=== PATIENT | male | born 1990 | race Caucasian/White ===

== ENCOUNTER 2017-10-01 17:31 | Emergency (ER) | payer MEDICAID ==
[~2017-10-01] VITALS: Ht 188 cm; Wt 72.7 kg
[2017-10-01 18:38] LABS: BASOPHILS # (AUTO) 0.01 x10^3/uL (0-0.1); BASOPHILS % (AUTO) 0 % (0-1); EOSINOPHILS # (AUTO) 0.01 x10^3/uL (0-0.4); EOSINOPHILS % (AUTO) 0 % (1-7); LYMPHOCYTES # (AUTO) 0.99 x10^3/uL (1-3.4); LYMPHOCYTES % (AUTO) 14 % (22-44); MD NO; MEAN CORPUSCULAR HEMOGLOBIN 29.2 pg (27.5-34.5); MEAN CORPUSCULAR HGB CONC 33.4 g/dL (33.2-36.2); MEAN CORPUSCULAR VOLUME 87.4 fL (81-97); MEAN PLATELET VOLUME 8.2 fL (7.4-10.4); MONOCYTES # (AUTO) 0.36 x10^3/uL (0.2-0.8); MONOCYTES % (AUTO) 5 % (2-9); NEUTROPHILS # (AUTO) 5.63 x10^3/uL (1.8-6.8); NEUTROPHILS % (AUTO) 81 % (42-75); PLATELET COUNT 282 x10^3/uL (130-400); RED BLOOD COUNT 4.23 x10^6/uL (4.38-5.82); RED CELL DISTRIBUTION WIDTH 13.5 % (9.4-14.8)
[2017-10-01 19:03] LABS: ALBUMIN 3.7 g/dL (3.4-5.0); ANION GAP 7 mmol/L (5-15); CALCIUM 8.7 mg/dL (8.5-10.1); CHLORIDE 106 mmol/L (98-107)
[2017-10-01 19:07] LABS: ALANINE AMINOTRANSFERASE 71 U/L (12-78); ALKALINE PHOSPHATASE 77 U/L (45-117); BILIRUBIN,TOTAL 0.8 mg/dL (0.2-1.0); CREATININE 0.96 mg/dL (0.7-1.3); TOTAL PROTEIN 7.6 g/dL (6.4-8.2)
[2017-10-01 19:47] VITALS: BP 123/69
== END 2017-10-01 20:43 | disposition home or self-care (01) ==
LOC: ED 20:37
DX: F41.1 Generalized anxiety disorder (principal); F41.0 Panic disorder [episodic paroxysmal anxiety]; F13.239 Sedative, hypnotic or anxiolytic dependence with withdrawal, unspecified; F15.10 Other stimulant abuse, uncomplicated; F17.200 Nicotine dependence, unspecified, uncomplicated; Z88.0 Allergy status to penicillin
CPT/HCPCS: 36415; 80053; 85025; 99284

== ENCOUNTER 2017-10-03 07:17 | Emergency (ER) | payer MEDICAID ==
[~2017-10-03] VITALS: Ht 188 cm; Wt 71.0 kg
[2017-10-03 07:24] VITALS: BP 120/82
[2017-10-03] MEDS ORDERED: CLON2TAB PO (08:00)
== END 2017-10-03 08:59 | disposition home or self-care (01) ==
LOC: ED 08:56
DX: F41.9 Anxiety disorder, unspecified (principal); F17.200 Nicotine dependence, unspecified, uncomplicated; Z76.0 Encounter for issue of repeat prescription
CPT/HCPCS: 99282

== ENCOUNTER 2017-10-12 15:40 | Emergency (ER) | payer MEDICAID ==
[~2017-10-12] VITALS: Ht 188 cm; Wt 73.0 kg
[~2017-10-12 15:40] MED LIST: CLON2TAB PO
[2017-10-12 15:49] VITALS: BP 136/84
== END 2017-10-12 17:22 | disposition home or self-care (01) ==
LOC: ED 16:14
DX: F41.9 Anxiety disorder, unspecified (principal); Z76.0 Encounter for issue of repeat prescription
CPT/HCPCS: 99283

== ENCOUNTER 2017-10-18 09:55 | Emergency (ER) | payer MEDICAID | END 2017-10-18 10:21 | disposition left against medical advice (07) | LOC: ED 10:15 | DX: Z53.21 Procedure and treatment not carried out due to patient leaving prior to being seen by health care provider (principal) ==

== ENCOUNTER 2017-11-08 02:21 | Emergency (ER) | payer MEDICAID ==
[~2017-11-08] VITALS: Ht 188 cm; Wt 72.0 kg
[2017-11-08 02:23] VITALS: BP 131/88
[2017-11-08] MEDS ORDERED: LORazepam 1MG TABLET PO ONE (03:00)
[2017-11-08] MEDS ORDERED: LORazepam 1MG TABLET ONE (03:03)
== END 2017-11-08 03:34 | disposition home or self-care (01) ==
LOC: ED 02:51
DX: F41.1 Generalized anxiety disorder (principal); F11.10 Opioid abuse, uncomplicated; F15.10 Other stimulant abuse, uncomplicated; Z76.0 Encounter for issue of repeat prescription
CPT/HCPCS: 99283